=== PATIENT | male | born 1985 | race Caucasian/White ===

== ENCOUNTER 2023-06-25 07:42 | Day surgery (SDC) | payer OTHER ==
[~2023-06-25] VITALS: Ht 172.7 cm; Wt 86.3 kg
[2023-06-25] VITALS (204 sets, daily range): BP systolic 74–210; BP diastolic 47–186
[2023-06-25 08:00] LABS: BASO% 0.5 % (0-3); EOS% 16.6 % (0-8); HEMATOCRIT 42.1 % (39.0-50.0); HEMOGLOBIN 15.2 g/dl (14.0-18.0); IMMATURE GRANULOCYTES 0.1 % (0.0-5.0); LYMPH% 28.4 % (15-41); MEAN CELL VOLUME 79.3 fL CALC (80.0-100.0); MEAN CORPUSCULAR HGB 28.6 pG CALC (26.0-32.0); MEAN CORPUSCULAR HGB CONC 36.1 g/dL CAL (32.0-36.0); MONO% 6.8 % (2-13); NEUT# 3.56 thou/uL (1.82-7.42); NEUT% 47.6 % (42-76); RED BLOOD COUNT 5.31 mill/uL (4.70-6.10); RED CELL DISTRI WIDTH 11.8 % (11.5-15.5)
[2023-06-25 08:22] LABS: ALBUMIN 4.8 g/dL (3.2-5.0); ALKALINE PHOSPHATASE 80 u/l (38-126); ANION GAP 12 (6-22 (CALC)); BILIRUBIN, TOTAL 0.9 mg/dL (0.2-1.3); BUN 10 mg/dL (9-20); BUN/CREATININE RATIO 14 (12-20 (CALC)); CARBON DIOXIDE 29 mmol/l (22-30); CHLORIDE 103 mmol/l (95-108); CREATININE 0.7 mg/dL (0.7-1.3); GFR FOR AFR.AMER. > 60 ML/MIN (>=60 (CALC)); GFR OTHER RACES > 60 ML/MIN (>=60 (CALC)); SGOT/AST 34 u/l (17-59); SODIUM 140 mmol/l (137-146); TOTAL PROTEIN 7.7 g/dL (6.3-8.2)
[2023-06-25] MEDS ORDERED: CELEXA10 MG PO (08:24)
[2023-06-25] MEDS ORDERED: XANAX0.5 MG PO (08:25)
[2023-06-25] MEDS ORDERED: NALTREXONE50 MG PO (13:10)
[2023-06-25] MEDS ORDERED: KLONOPIN2 MG PO (13:10)
[2023-06-25] MEDS ORDERED: CLONIDINE0.1 MG PO (13:10)
[2023-06-26 04:26] VITALS: BP 137/92
[2023-06-26 06:52] LABS: BASO% 0.1 % (0-3); HEMATOCRIT 40.6 % (39.0-50.0); HEMOGLOBIN 14.9 g/dl (14.0-18.0); IMMATURE GRANULOCYTES 0.2 % (0.0-5.0); LYMPH% 5.1 % (15-41); MEAN CELL VOLUME 78.8 fL CALC (80.0-100.0); MEAN CORPUSCULAR HGB 28.9 pG CALC (26.0-32.0); MEAN CORPUSCULAR HGB CONC 36.7 g/dL CAL (32.0-36.0); MONO% 2.7 % (2-13); NEUT# 13.74 thou/uL (1.82-7.42); NEUT% 91.9 % (42-76); RED BLOOD COUNT 5.15 mill/uL (4.70-6.10); RED CELL DISTRI WIDTH 11.8 % (11.5-15.5)
[2023-06-26 06:58] VITALS: BP 111/75
[2023-06-26 07:44] LABS: ALBUMIN 4.3 g/dL (3.2-5.0); ALKALINE PHOSPHATASE 109 u/l (38-126); BUN 13 mg/dL (9-20); BUN/CREATININE RATIO 20 (12-20 (CALC)); CHLORIDE 105 mmol/l (95-108); CREATININE 0.6 mg/dL (0.7-1.3); GFR FOR AFR.AMER. > 60 ML/MIN (>=60 (CALC)); GFR OTHER RACES > 60 ML/MIN (>=60 (CALC)); MAGNESIUM 1.9 mg/dL (1.6-2.3); POTASSIUM 3.7 mmol/l (3.5-5.1); SGOT/AST 32 u/l (17-59); SODIUM 137 mmol/l (137-146)
[2023-06-26 07:48] LABS: ANION GAP 14 (6-22 (CALC)); BILIRUBIN, TOTAL 1.6 mg/dL (0.2-1.3); CARBON DIOXIDE 22 mmol/l (22-30)
[2023-06-26 08:13] VITALS: BP 111/75
== END 2023-06-26 15:30 | disposition home or self-care (01) | DRG 897 ==
LOC: ANR 07:42 → MS2 07:57 → ANR 06-26 15:30
PROVIDERS: ATTEND Anesthesiology
DX: F11.20 Opioid dependence, uncomplicated (principal)
CPT/HCPCS: J0131; J2354; J3475